=== PATIENT | female | born 1960 | race Caucasian/White ===

== ENCOUNTER 2023-08-14 11:40 | Emergency (ER) | payer OTHER ==
[2023-08-14 12:30] VITALS: BP 149/81; PULSE 75; RESP 18; TEMP 99; BMI 30.4
[2023-08-14] MEDS ORDERED: ACETAMINOPHEN 325 MG TABLET (FP) ONE (14:01)
[2023-08-14] MEDS: ACETAMINOPHEN 325 MG TABLET (FP) PO ONE (14:06)
[2023-08-14] MEDS ORDERED: IBUPROFEN 600 MG TABLET (FP) PO ONE (16:49)
[2023-08-14] MEDS: IBUPROFEN 600 MG TABLET (FP) PO ONE (16:52)
[2023-08-14] MEDS ORDERED: HYDROmorphone HCl 2 MG/ML VIAL ONE (18:41)
[2023-08-14] MEDS ORDERED: ONDANSETRON 4 MG/2 ML VIAL ONE (18:41)
[2023-08-14] MEDS: HYDROmorphone HCl 2 MG/ML VIAL IVPUSH ONE (18:46)
[2023-08-14] MEDS: ONDANSETRON 4 MG/2 ML VIAL IVPUSH ONE (18:46)
== END 2023-08-14 21:01 | disposition home or self-care (01) ==
LOC: JER 11:40
PROC: 3E033GC Introduction of Other Therapeutic Substance into Peripheral Vein, Percutaneous Approach (ICD-10-PCS; principal; 2023-08-14)
PROC: 3E033GC Introduction of Other Therapeutic Substance into Peripheral Vein, Percutaneous Approach (ICD-10-PCS; 2023-08-14)
PROC: 0PSHXZZ Reposition Right Radius, External Approach (ICD-10-PCS; 2023-08-14)
DX: S52.501A Unspecified fracture of the lower end of right radius, initial encounter for closed fracture (principal); S52.611A Displaced fracture of right ulna styloid process, initial encounter for closed fracture; S00.83XA Contusion of other part of head, initial encounter; W00.0XXA Fall on same level due to ice and snow, initial encounter; Y93.01 Activity, walking, marching and hiking
CPT/HCPCS: 70450-TC; 70486-TC; 73070-TC-RT-FY; 73090-TC-RT-FY; 73110-TC-RT-FY; 73130-TC-RT-FY; 99284-25